=== PATIENT | female | born 1950 | race Caucasian/White ===

== ENCOUNTER → 2021-01-26 | Outpatient (CLI) | payer MEDICARE ==
--- NOTE | 2021-01-26 14:21 | RAD ---
EXAM: Cervical spine, 4 views. HISTORY: Pain. COMPARISON: None. FINDINGS: 4 views of the cervical spine are obtained. There is minimal retrolisthesis of C5 on C6, me asuring 1 to 2 mm. There is minimal endplate remodeling primarily at this level. There is mild multil evel facet arthropathy. IMPRESSION: Minimal to mild degenerative change involving the cervical spine. No acute osseous findin g. Electronically signed by: Yaa Zendejas MD (01/26/2021 2:19 PM) [id number]
== END ==
LOC: RAD 13:39
PROVIDERS: ATTEND Specialist
DX: M47.812 Spondylosis without myelopathy or radiculopathy, cervical region (principal)
CPT/HCPCS: 72040